=== PATIENT | male | born 1995 | race Caucasian/White ===

== ENCOUNTER 2023-04-20 21:04 | Emergency (ER) | payer OTHER, SELFPAY ==
--- NOTE | ~2023-04-20 | XR_ITS ---
EXAMINATION: XR KNEE, LEFT CLINICAL INFORMATION: Knee pain COMPARISON: None available. TECHNIQUE: Four views of the left knee. FINDINGS: No fracture or joint effusion. Alignment is anatomic. Joint spaces are maintained. No abnormal soft tissue calcification. XR/XR knee LT 4V IMPRESSION: Normal left knee.
[2023-04-20 21:29] VITALS: BP 124/89; PULSE 98; RESP 18; TEMP 36.7; O2SAT 97; BMI 36.0
--- NOTE | 2023-04-20 23:58 | ED.LOWEXIN ---
HPI - Extremity Injury (Lower) General Chief Complaint: Extremity Injury, Lower Stated Complaint: Left Knee Injury Time Seen by Provider: 04/20/23 23:45 Source: patient Mode of arrival: wheelchair History of Present Illness HPI Narrative: 27-year-old male who presents with left knee pain after participating in his martial arts course and landed on his left foot with knee shifting to the medial aspect and now has pain over the LCL area and having difficulty bearing weight. Related Data Allergies Allergy/AdvReac Type Severity Reaction Status Date / Time Sulfa (Sulfonamide Allergy Unknown THINS BLOOD Unverified 01/04/20 16:57 Antibiotics) [SULFA(SULFONAMIDE ANTIBIOTICS)] morphine Allergy Unknown Uncoded 08/05/16 00:00 Review of Systems Review of Systems: Pertinent positives and negatives as stated in [facility] Past Medical History Source: nursing notes reviewed Onset Date is defined in the Problem List Problems that require an onset date and time if occurred within 24 hrs of arrival to the ED Aortic Dissection and Rupture; Neurologic impairment; Cardiopulmonary Arrest; Endotracheal Intubation; Insertion or Replacement of Mechanical Circulatory Assist Device Physical Exam Vital Signs: Vital Signs: Last Vital Signs Temp 98.1 F 04/20/23 21:29 Pulse 98 04/20/23 21:29 Resp 18 04/20/23 21:29 BP 124/89 04/20/23 21:29 Pulse Ox 97 04/20/23 21:29 O2 Del Method Room Air 04/20/23 21:29 BMI result Body Mass Index 36.0 VITAL SIGNS: Reviewed. GENERAL: Well developed, well nourished, in no acute distress. HEAD: Normocephalic/atraumatic EYES: PERRLA, EOMI EARS: Ext canals without abnormality LUNGS: Normal breath sounds. No adventitious sounds or accessory muscle use. SpO2<97> CARDIOVASCULAR: Regular rate and rhythm without noted murmurs ABDOMEN: Soft, non-tender, non-distended with bowel sounds. MUSCULOSKELETAL: No tenderness, deformities, or effusions noted on gross inspection. EXTREMITIES: No cyanosis, clubbing or edema. LEFT KNEE: No obvious deformity, no erythema or induration, no effusion, tenderness to palpation over the LCL distribution, no patellar pain and no MCL pain, neurovascular is intact distal SKIN: Inspection of the skin reveals no rashes NEUROLOGIC: Alert and oriented x 4. Strength and sensation to light touch were grossly intact x 4. Medical Decision Making Medical Decision Making MDM Narrative: 27-year-old male with history and clinical presentation, DDX: I highly suspecting LCL/lateral meniscus injury, minimal swelling or effusion, I reviewed the x-ray which is not surprisingly negative for fracture or dislocation. Her wraps the knee with an Ney wrap and gave patient crutches and directed him to his primary care doctor and discussion for referral Sports Medicine. Differential Diagnosis Differential Diagnoses: The differential diagnosis associated with the presentation includes Please see the discussion above Admission/Observation Consideration of admission/observation: Escalation of care including admission/observation considered Please see the discussion above Radiology Impression Discussion of test interpretation with radiology: I have reviewed the radiologist's reading. Radiologist Impression: Please see the discussion above Discharge Plan Discharge Clinical Impression: Injury of knee, left Patient Disposition: Home, Self-Care Instructions: Crutch Instructions (ED), How to Use an Elastic Bandage (ED), Knee Pain (ED), R.I.C.E. Treatment (ED) Additional Instructions: 1. Keep the Ney wrap in place as the compression will help with your pain. Use the crutches and weight bear as tolerated. 2. Please apply ice to unexposed skin for 10-15 minutes, 3 to 4 times a day. 3. Please follow-up with your primary care doctor and discuss a referral to Sports Medicine. Return to the ER for any worsening symptoms. Stand Alone Forms: Work/School Release
--- NOTE | 2023-04-21 00:47 | PC.NURSE ---
The RN only reviewed discharge instructions with pt. pt verbalized understanding upon discharge, no sign of distress at this time.
== END 2023-04-21 00:49 | disposition home or self-care (01) ==
PROVIDERS: Emergency Provider Student in an Organized Health Care Education/Training Program
DX: S89.92XA Unspecified injury of left lower leg, initial encounter (principal); Y93.75 Activity, martial arts; Y92.89 Other specified places as the place of occurrence of the external cause; Y99.9 Unspecified external cause status; M25.562 Pain in left knee
CPT/HCPCS: 73564; 99282; 99283

== ENCOUNTER 2023-04-29 12:58 | Outpatient (REF) | payer OTHER, SELFPAY ==
--- NOTE | ~2023-04-29 | MR_ITS ---
EXAMINATION: MR KNEE WITHOUT CONTRAST, LEFT CLINICAL INFORMATION: Left knee pain. Instability. Effusion. COMPARISON: Left knee radiographs dated 04/20/2023. TECHNIQUE: MRI of the knee without contrast was performed using routine sequences on a high-field scanner. FINDINGS: MENISCI: Medial Meniscus: Complete radial tear of the posterior root insertion measuring up to 0.6 cm in ML dimension with adjacent soft tissue edema. Medial extrusion of the meniscal body. Lateral Meniscus: Partially discoid lateral meniscus. Oblique longitudinal tearing through the anterior horn. LIGAMENTS: Cruciate: Complete, full-thickness tear of the anterior cruciate ligament with diffuse thickening, heterogeneity, and edema of the torn ligament fibers. Intact posterior cruciate ligament. Collateral: Edema adjacent to the medial collateral ligament consistent with a grade 1 sprain. Edema adjacent to the fibular collateral ligament consistent with a grade 1 sprain. Attenuation and edema in the region of the arcuate ligament, consistent with a sprain/partial tear and a posterolateral corner injury. Prominent adjacent soft tissue edema. EXTENSOR MECHANISM: Intact. ARTICULAR CARTILAGE/BONE: Patellofemoral Compartment: Intact articular cartilage. Medial Compartment: Intact articular cartilage. Minimal cortical depression with underlying marrow edema at the posterior aspect of the medial tibial plateau, consistent with an impaction fracture. Lateral Compartment: Intact articular cartilage. Minimal cortical depression with underlying marrow edema at the sulcus terminalis and posterior lateral tibial plateau, consistent with impaction fractures. JOINT FLUID AND BURSAE: Moderate joint effusion. Anterolateral subcutaneous edema, consistent with a soft tissue contusion. MR/MR knee LT wo con IMPRESSION: 1. Complete, full-thickness tear of the anterior cruciate ligament. 2. Grade 1 sprain of the medial collateral ligament. Grade 1 sprain of the fibular collateral ligament. Additional sprain/partial tear of the arcuate ligament, consistent with a posterolateral corner injury. 3. Complete radial tear of the medial meniscus posterior root with medial extrusion of the meniscal body. 4. Partially discoid lateral meniscus with an oblique longitudinal tear through the anterior horn. 5. Minimally depressed impaction fractures at the sulcus terminalis as well as at the posterior medial and lateral tibial plateau. 6. Moderate joint effusion. Anterolateral subcutaneous edema, consistent with a soft tissue contusion.
== END 2023-04-29 12:59 | disposition home or self-care (01) ==
LOC: HO.MRI 12:58
PROVIDERS: PCP Internal Medicine; Referring Provider Internal Medicine; Visit Provider Student in an Organized Health Care Education/Training Program
DX: M25.362 Other instability, left knee (principal); M25.462 Effusion, left knee
CPT/HCPCS: 73721

== ENCOUNTER 2023-05-18 15:44 | Emergency (ER) | payer OTHER, SELFPAY ==
[2023-05-18 15:49] VITALS: BP 113/65; PULSE 99; RESP 18; TEMP 36.3; O2SAT 97; BMI 36.0
--- NOTE | 2023-05-18 15:56 | ED.GENADULT ---
HPI - General Adult General Chief complaint: Extremity Injury, Lower Stated complaint: left acl injury swelling Time Seen by Provider: 05/18/23 18:09 Source: patient Mode of arrival: other (Crutches ambulatory) Limitations: no limitations History of Present Illness HPI narrative: Patient is a 27-year-old male with reported past medical history of G6PD deficiency who presents emergency department for evaluation. He reports he sustained a tear to his ACL. About 1 week following on 04/27/2022 he developed pain to his left calf and swelling which he attributed to the initial injury, and intermittent numbness to the left foot He had his initial appointment today with [facility] orthopedic surgeon, Dr. Byrd, who sent him to [facility] for outpatient ultrasound which revealed a DVT and he was advised to present to the emergency department. He denies any personal history of DVT/PE. He denies headache, dizziness, lightheadedness, neck pain, chest pain, shortness of breath. Related Data Previous Rx's Medication Instructions Recorded apixaban 5 mg (74 tabs) tablets in 5 mg PO BID #74 ea 05/18/23 a dose pack (Eliquis DVT-PE Treat 30D Start) Allergies Allergy/AdvReac Type Severity Reaction Status Date / Time Sulfa (Sulfonamide Allergy Unknown THINS BLOOD Verified 05/18/23 15:49 Antibiotics) [SULFA(SULFONAMIDE ANTIBIOTICS)] morphine Allergy Unknown Hives Uncoded 05/18/23 15:49 Review of Systems Review of Systems: Yes all other systems are reviewed and are negative PMFSH Past Medical History Attestation statement: The following information was validated with the patient. Source: old records reviewed Social History Social History Advance Directives: No Advance Directives Information Provided: No Physical Exam ED Vital Signs: Vital Signs - 24 hr 05/18/23 15:49 05/18/23 18:01 Temperature 97.3 F 98.8 F Pulse Rate 99 86 Respiratory Rate 18 20 Blood Pressure 113/65 124/65 Pulse Oximetry 97 97 Oxygen Delivery Method Room Air Room Air BMI result Body Mass Index 36.0 Appearance: Alert.?Oriented to person, place and time. No acute distress.?Normal affect. Eyes: Pupils equal, round and reactive to light.? ENT: Pharynx normal.?? Neck: Normal inspection.? Neck supple.?? CVS: Heart sounds normal. Normal heart rate and rhythm.? Pulses normal.?? Respiratory: No respiratory distress.? Lung sounds clear to auscultation bilaterally?? Abdomen: Soft and non-tender. Normoactive bowel sounds. No pulsatile mass.?? Skin: Skin warm and dry.? Normal skin color.? Normal skin turgor.?? Extremities: Left calf tenderness upon palpation. 2+ left lower extremity pitting edema, 1+ DP/PT pulse on the left, 2+ on the right. Knee immobilizer in place. Neuro: Moves all extremities spontaneously. Sensation intact bilaterally. CN II-XII intact. No focal neuro deficits. Ambulates with n antalgic gait and use of crutches Course Course Course Narrative: RME- 27-year-old male presents for evaluation of ?I have a blood clot in my leg. ? Patient reports that he tore his ACL on April 20 this year. He had an outpatient ultrasound due to right leg pain and swelling was found to have a DVT per his report. His ultrasound was done at [facility] outpatient. He has a disc with him. Plan for labs including coags Medical Decision Making Medical Decision Making [facility] Narrative: Patient is a 27-year-old male with past medical history of anxiety, depression, hypothyroidism, migraine headaches, G6 PD deficiency presenting to emergency department for reports of outpatient ultrasound indicating DVT in the setting of recent ACL tear as per HPI. Extremity at this time is neurovascularly intact distally. I reviewed the radiologist impression from his outpatient ultrasound which indicates Occlusive thrombus of one of the paired peroneal veins in the calf measuring at least 5cm in length . He does not have any symptoms concerning for pulmonary embolism. Vital signs are stable. Consulted with vascular Dr. Mckeon who reports no indication for surgical intervention at this time and that he may be initiated on Eliquis with outpatient follow-up. Serum labs were obtained prior to initiation no anemia, coags normal, unremarkable BMP, no need to renally adjust. We discussed strict return precautions, bleeding precautions, worrisome signs and symptoms that would warrant re-evaluation. All questions were answered. Stable for discharge Differential Diagnosis Differential Diagnoses: The differential diagnosis associated with the presentation includes (As noted above) Admission/Observation Consideration of admission/observation: Escalation of care including admission/observation considered (See narrative above) Lab Data [facility] Lab Attestation statement: I reviewed the patient's lab results. (See narrative above) 05/18/23 18:44 05/18/23 18:44 Labs: Lab Results 05/18/23 Range/Units 18:44 WBC 11.0 H (4.8-10.8) X10*3/uL RBC 5.53 (4.60-5.80) X10*6/uL Hgb 15.9 (14.0-18.0) g/dl Hct 46.8 (42.0-52.0) % MCV 84.6 (80.0-98.0) fL MCH 28.8 (27.0-33.0) pg MCHC 34.0 (31.0-36.0) g/dl RDW 13.0 (11.0-16.0) % Plt Count 342 (160-400) X10*3/uL MPV 8.2 L (9.4-12.4) fL Immature Gran % (Auto) 0.4 (0.0-0.4) % Neut % (Auto) 54.3 (45-73) % Lymph % (Auto) 26.9 (20-40) % [place] % (Auto) 10.6 (2-11) % Eos % (Auto) 6.9 H (0-4) % Baso % (Auto) 0.9 (0-2) % Lymph # (Auto) 3.0 (1.2-4.9) X10*3/uL [place] # (Auto) 1.2 (0.1-1.2) X10*3/uL Eos # (Auto) 0.8 H (0.0-0.4) X10*3/uL Baso # (Auto) 0.1 (0.0-0.2) X10*3/uL Abs Immat Gran (auto) 0.04 H (0.00-0.03) X10*3/uL Absolute Neuts (auto) 6.0 (2.0-8.3) x10*3/uL Absolute Nucleated RBC 0.000 (0.0-0.012) X10*3/uL Nucleated RBC % (auto) 0.0 (0.0-0.2) /100WBC PT 12.2 (11.1-13.3) SEC INR 1.0 (0.9-1.1) APTT 30.9 (26.0-36.8) SEC Sodium 140 (135-145) mmol/L Potassium 4.3 (3.3-5.1) mmol/L Chloride 103 (96-108) mmol/L Carbon Dioxide 26 (22-29) mmol/L Anion Gap 15 (12-20) BUN 13 (9-16) mg/dL Creatinine 1.02 (0.5-1.4) mg/dL Estim Creat Clear Calc 124.1 Estimated GFR > 60 Random Glucose 87 (60-115) mg/dL Calcium 9.9 (8.4-10.2) mg/dL Independent Historian Clinical information obtained from an independent historian. History obtained from or confirmed by: Spouse (Present who confirms history) External Record Review External record reviewed: Prior outpatient radiology Prescription Management I considered prescription management with: Other (Eliquis) Discharge Plan Discharge Clinical Impression: Acute deep vein thrombosis (DVT) of distal end of left lower extremity Patient Disposition: Home, Self-Care Instructions: Deep Vein Thrombosis (ED), Blood Thinners (ED) Additional Instructions: You have been started on a blood thinning medication due to the blood clot that is in your left calf. The name of this medication is Eliquis/apixaban. You will take 10 mg twice daily for 7 days. Then you will take 5 mg twice daily for at least 3 months. It is important that you monitor for any signs of bleeding, a few sustained any falls or injury, or injury your head in any way you should present to an emergency department to have evaluation. If you develop chest pain, shortness of breath, difficulty breathing, severe headache, dizziness, lightheadedness, confusion, you should return to the emergency department for re-evaluation. Please contact your primary care provider as well as your orthopedic provider to arrange for further follow-up. Prescriptions: New Eliquis DVT-PE Treat 30D Start 5 mg (74 tabs) tablets,dose pack 5 mg PO BID Qty: 74 0RF Referrals: Kennedy Hand MD [Primary Care Provider] -
[2023-05-18 18:01] VITALS: BP 124/65; PULSE 86; RESP 20; TEMP 37.1; O2SAT 97
[2023-05-18 18:49] LABS: MANUAL DIFF FLAG NO
[2023-05-18 18:51] LABS: Basophils Absolute Auto 0.1 X10*3/uL (0.0-0.2); Basophils Percent Auto 0.9 % (0-2); Eosinophils Absolute Auto 0.8 X10*3/uL (0.0-0.4); Eosinophils Percent Auto 6.9 % (0-4); Hematocrit 46.8 % (42.0-52.0); Hemoglobin 15.9 g/dl (14.0-18.0); Imm Gran Abs Auto 0.04 X10*3/uL (0.00-0.03); Imm Gran Pct Auto 0.4 % (0.0-0.4); Lymphocytes Percent Auto 26.9 % (20-40); Mean Corpuscular Hemoglobin 28.8 pg (27.0-33.0); Mean Corpuscular Volume 84.6 fL (80.0-98.0); Mean Platelet Volume 8.2 fL (9.4-12.4); Monocytes Absolute Auto 1.2 X10*3/uL (0.1-1.2); Monocytes Percent Auto 10.6 % (2-11); Neutrophils Percent Auto 54.3 % (45-73); Platelet Count 342 X10*3/uL (160-400); Red Blood Count 5.53 X10*6/uL (4.60-5.80)
[2023-05-18 18:58] LABS: Prothrombin Time 12.2 SEC (11.1-13.3)
[2023-05-18 19:01] LABS: Anion Gap 15 (12-20); Blood Urea Nitrogen 13 mg/dL (9-16); Calcium 9.9 mg/dL (8.4-10.2); Carbon Dioxide 26 mmol/L (22-29); Chloride 103 mmol/L (96-108); Creatinine Clr Calc Pharmacy 124.1; Estimated Glomerular Filt Rate > 60; Glucose Random 87 mg/dL (60-115); Partial Thromboplastin Time 30.9 SEC (26.0-36.8); Potassium 4.3 mmol/L (3.3-5.1); Sodium 140 mmol/L (135-145)
[2023-05-18 19:42] VITALS: BP 117/69; PULSE 70; RESP 16; TEMP 36.1; O2SAT 98
[2023-05-18] MEDS: Apixaban 5 MG TABLET 10 MG PO (19:50)
== END 2023-05-18 19:54 | disposition home or self-care (01) ==
PROVIDERS: Physician Assistant; Emergency Provider Emergency Medicine; PCP Internal Medicine
DX: I82.4Z2 Acute embolism and thrombosis of unspecified deep veins of left distal lower extremity (principal); Z79.899 Other long term (current) drug therapy
CPT/HCPCS: 36415; 80048; 85025; 85610; 85730; 99283; 99284

== ENCOUNTER 2023-06-03 17:02 | Emergency (ER) | payer OTHER, SELFPAY ==
--- NOTE | ~2023-06-03 | CT_ITS ---
EXAMINATION: CT head/brain wo IV con CLINICAL INFORMATION: Reason for Exam fall with head strike, on thinners COMPARISON: None. TECHNIQUE: Contiguous axial imaging was performed from the skull base to vertex without intravenous contrast. Sagittal and coronal reformatted images were obtained. This CT examination was performed using dose optimization techniques as appropriate, variously including the following: * Automated exposure control * Adjustment of mA and/or kV according to patient size (this includes techniques or standardized protocols for targeted exams where dose is matched to indication/reason for exam; i.e. extremities or head) Use of iterative reconstruction technique DLP: 726.97 mGy-cm FINDINGS: No acute osseous or soft tissue abnormality. The mastoid air cells and visualized portions of the paranasal sinuses are well aerated. There is no evidence of acute intracranial hemorrhage or territorial infarction. No abnormal mass effect or midline shift is seen. Rapp to white matter differentiation is well preserved. No extra-axial fluid collections are identified. No hydrocephalus. No significant volume loss. There is no abnormal attenuation within the brain parenchyma. CT/CT head/brain wo IV con IMPRESSION: No acute intracranial abnormality including hemorrhage, mass effect, hydrocephalus, or acute territorial edematous infarction.
[2023-06-03 17:12] VITALS: BP 119/63; PULSE 117; RESP 18; TEMP 36.1; O2SAT 96; BMI 37.6
--- NOTE | 2023-06-03 17:12 | ED.GENADULT ---
HPI - General Adult General Chief complaint: Head Injury Stated complaint: + blood thinners, hit head this am. headache/ dizz Time Seen by Provider: 06/03/23 20:35 Source: patient Mode of arrival: ambulatory Limitations: no limitations History of Present Illness HPI narrative: Patient comes to the emergency room requesting to get checked out since he fell this morning and his on blood thinners. Patient states that he has a mild bump in his head, mild headache. No neck pain. Patient states that overall he feels well and at baseline. Patient states that he is sleep this morning and hit the top of his head on the door knob. Patient did not lose consciousness. Earlier today, patient reported that he had some dizziness. However, patient denies any dizziness. Patient states that he is on Eliquis because he had a provoked DVT in his leg secondary to ACL tear Related Data Previous Rx's Medication Instructions Recorded apixaban 5 mg (74 tabs) tablets in 5 mg PO BID #74 ea 05/18/23 a dose pack (Eliquis DVT-PE Treat 30D Start) Allergies Allergy/AdvReac Type Severity Reaction Status Date / Time Sulfa (Sulfonamide Allergy Unknown THINS BLOOD Verified 06/03/23 17:11 Antibiotics) [SULFA(SULFONAMIDE ANTIBIOTICS)] morphine Allergy Unknown Hives Uncoded 05/18/23 15:49 Review of Systems Review of Systems: Constitutional : No Weight loss, No Fever, No Chills, No Night Sweats, No Fatigue, No Malaise ENT/Mouth : No Hearing loss, No Ear Pain, No Nasal Congestion, No Sinus Pain, No Hoarseness, No sore throat, No Rhinorrhea, No Swallowing Difficulty Eyes: No Eye Pain, No Swelling, No Redness, No Foreign Body, No Discharge, No Vision Changes Cardiovascular : No Chest Pain, No SOB, No Dyspnea on Exertion, No Orthopnea, No Edema, No Palpitations Respiratory : No Cough, No Sputum, No Wheezing, No Smoke Exposure, No Dyspnea Gastrointestinal : No Nausea, No Vomiting, No Diarrhea, No Constipation, No abdominal Pain, No Hematochezia, No Melena Genitourinary : no irregular bleeding, No Dysuria, No Urinary Frequency, No Hematuria, No Urinary Incontinence, No Urgency, No Flank Pain, No Urinary Flow Changes, No Hesitancy Musculoskeletal : No joint pain, No Myalgias, No Joint Swelling Skin : No Skin Lesions, No rash Neuro : No Weakness, No Numbness, No Paresthesias, No Loss of Consciousness, No Dizziness, complaining of mild Headache Psych : No Anxiety/Panic, No Depression, No SI/HI/AH/VH, No Social Issues, Heme/Lymph: No Bruising, No Bleeding,No Lymphadenopathy Endocrine : No Polyuria, No Polydipsia, No Temperature Intolerance [facility] Past Medical History Medical History (Updated 06/03/23 @ 21:22 by Gisel Ayers MD) DVT (deep venous thrombosis) Social History Social History Advance Directives: No Advance Directives Information Provided: No Physical Exam ED Vital Signs: Vital Signs - 24 hr 06/03/23 17:12 Temperature 97 F Pulse Rate 117 H Respiratory Rate 18 Blood Pressure 119/63 Pulse Oximetry 96 Oxygen Delivery Method Room Air BMI result Body Mass Index 37.6 Const Other: Appearance: Alert. Oriented X3. No acute distress. Eyes: Pupils equal, round and reactive to light. ENT: Pharynx normal. Neck: Normal inspection. Neck supple. No lymph nodes noted. No crepitus CVS: Normal heart rate and rhythm. Pulses normal. Normal S1 and S2 Respiratory: No respiratory distress. Breath sounds normal. No Wheezing. No rales Abdomen: Soft and nontender. No rigidity. No distention. Skin: Skin warm and dry. Normal skin color. Normal skin turgor. Extremities: No lower extremity edema. No Lacerations. No Rash Neuro: Oriented X 3. No motor deficit. No sensory deficit. Moving all extremities. No slurred speech. CN 2 through 12 grossly intact Psych: calm, cooperative, normal affect Course Course Course Narrative: This is a rapid medical exam: Additional HPI, ROS, PE not included below will be deferred to primary provider. Patient is a 27-year-old male currently on Eliquis for DVT presenting to the emergency department with complaint of headache and dizziness after a slip and fall earlier today. States that he slipped while entering his apartment due to using crutches and has a top of his head against his door walker. Later in the day developed headache and dizziness. Plan: CT head Medical Decision Making Medical Decision Making [facility] Narrative: My interpretation of CT scan of the head: No intracranial bleed. -patient is neurologically intact and asymptomatic Differential Diagnosis Differential Diagnoses: The differential diagnosis associated with the presentation includes (Contusion, concussion, intracranial bleed) Discharge Plan Discharge Clinical Impression: Closed head injury Patient Disposition: Home, Self-Care Instructions: Head Injury (ED) Additional Instructions: Please follow-up with your primary care physician tomorrow. If you have any worsening or new symptoms, please return to the emergency room or call 911 Prescriptions: No Action Gissel DVT-PE Treat 30D Start 5 mg (74 tabs) tablets,dose pack 5 mg PO BID Qty: 74 0RF
== END 2023-06-03 21:25 | disposition home or self-care (01) ==
PROVIDERS: Emergency Provider Emergency Medicine; PCP Internal Medicine
DX: S09.90XA Unspecified injury of head, initial encounter (principal); W22.8XXA Striking against or struck by other objects, initial encounter; Y93.84 Activity, sleeping; Y92.032 Bedroom in apartment as the place of occurrence of the external cause; Y99.9 Unspecified external cause status; Z86.718 Personal history of other venous thrombosis and embolism; Z79.01 Long term (current) use of anticoagulants
CPT/HCPCS: 70450; 99283; 99284

== ENCOUNTER 2024-09-05 09:19 | Emergency (ER) | payer OTHER, SELFPAY ==
--- NOTE | ~2024-09-05 | CT_ITS ---
EXAMINATION: CT ABDOMEN PELVIS WITH IV CONTRAST HISTORY: left side abd pain COMPARISON: There are no prior studies for comparison. TECHNIQUE: CT scan of the abdomen and pelvis was performed following administration of 85 mL Omnipaque 350 using standard departmental protocol. Coronal and sagittal reformatted images were generated and reviewed. Oral contrast material was not administered at the request of the referring physician. This CT exam was performed with one or more of the following dose reduction techniques: automated exposure control, adjustment of the mA and/or kV according to patient size, use of iterative reconstruction technique. DLP: 808 mGy-cm FINDINGS: LOWER CHEST: The visualized lung bases are clear. There is no pleural effusion. CARDIOVASCULATURE: The heart is normal in size. There is no pericardial effusion. LIVER: The liver is normal in size and contour. No liver mass is identified. The hepatic and portal veins are patent. GALLBLADDER / BILE DUCTS: The gallbladder is surgically absent. There is no intra or extrahepatic biliary ductal dilatation. SPLEEN: The spleen is normal in size. No focal splenic lesion is identified. PANCREAS: The pancreas is unremarkable in appearance. ADRENAL GLANDS: Within normal limits. KIDNEYS/RETROPERITONEUM: No renal calculi are identified. There is no hydronephrosis. There is a subcentimeter probable cyst at the upper pole of the right kidney. LYMPH NODES: No abdominal or pelvic lymphadenopathy. VASCULATURE: The abdominal aorta is normal in caliber. MESENTERY/PERITONEUM: No free fluid. No masses. There is no free intraperitoneal gas. STOMACH: The stomach is unremarkable. SMALL BOWEL: The small bowel is normal in caliber. COLON: There is a moderate to large amount of stool throughout the colon. APPENDIX: Normal. URINARY BLADDER/PELVIC ORGANS: The urinary bladder is collapsed, limiting evaluation. The prostate is normal in size. BONES / SOFT TISSUES: There is a tiny fat-containing umbilical hernia. The bones are intact. CT/CT abdomen pelvis w IV con IMPRESSION: Moderate to large amount of stool throughout the colon. Electronically signed by: Malachi Lundy MD 09/05/2024 10:52 AM EDT
[2024-09-05 09:34] VITALS: BP 123/81; PULSE 79; RESP 16; TEMP 36.2; O2SAT 96; BMI 37.8
[2024-09-05 09:55] LABS: MANUAL DIFF FLAG NO
[2024-09-05 09:57] LABS: Basophils Absolute Auto 0.1 X10*3/uL (0.0-0.2); Basophils Percent Auto 0.5 % (0-2); Eosinophils Absolute Auto 1.4 X10*3/uL (0.0-0.4); Eosinophils Percent Auto 14.7 % (0-4); Hematocrit 44.7 % (42.0-52.0); Hemoglobin 15.5 g/dl (14.0-18.0); Imm Gran Abs Auto 0.04 X10*3/uL (0.00-0.03); Imm Gran Pct Auto 0.4 % (0.0-0.4); Lymphocytes Percent Auto 20.8 % (20-40); Mean Corpuscular HGB Conc 34.7 g/dl (31.0-36.0); Mean Corpuscular Hemoglobin 29.1 pg (27.0-33.0); Mean Corpuscular Volume 83.9 fL (80.0-98.0); Mean Platelet Volume 8.5 fL (9.4-12.4); Monocytes Percent Auto 10.1 % (2-11); Neutrophils Absolute Auto 5.1 x10*3/uL (2.0-8.3); Neutrophils Percent Auto 53.5 % (45-73); Platelet Count 302 X10*3/uL (160-400); Red Blood Count 5.33 X10*6/uL (4.60-5.80); Red Cell Distribution Width 13.4 % (11.0-16.0); White Blood Count 9.5 X10*3/uL (4.8-10.8)
[2024-09-05 10:14] LABS: Alanine Aminotransferase 100 U/L (0-40); Albumin Level 4.4 g/dL (3.5-5.0); Alkaline Phosphatase 98 U/L (39-117); Anion Gap 11 (12-20); Aspartate Amino Transferase 37 U/L (5-37); Bilirubin Total 0.6 mg/dL (0.0-1.0); Blood Urea Nitrogen 14 mg/dL (9-16); Calcium 9.3 mg/dL (8.4-10.2); Carbon Dioxide 28 mmol/L (22-29); Chloride 104 mmol/L (96-108); Creatinine Clr Calc Pharmacy 119.1; Estimated Glomerular Filt Rate > 60; Glucose Random 105 mg/dL (60-115); Lipase 20 U/L (8-78); Sodium 139 mmol/L (135-145); Total Protein 7.7 g/dL (6.5-8.0)
--- NOTE | 2024-09-05 10:14 | ED.ABDPAIN ---
HPI - Abdominal Pain General Chief Complaint: Abdominal Pain Stated Complaint: Hernia, nausea/vomiting Time Seen by Provider: 09/05/24 09:57 Source: patient Mode of arrival: ambulatory Limitations: no limitations History of Present Illness ED Provider: DR. Ochoa HPI narrative: 28-year-old male came in for evaluation abdominal pain, nausea, vomiting, nonbloody watery diarrhea for the past 2 days, patient had similar symptoms 2 weeks ago lasted for 2 days, past intra-abdominal surgery is significant for acute cholecystectomy, no dysuria, no frequency urination, no hematuria. Patient also is being having a rotten eggs burping. No fever, no chills, no recent travel. Related Data Previous Rx's ?Medication ?Instructions ?Recorded apixaban 5 mg (74 tabs) tablets in 5 mg PO BID #74 ea 05/18/23 a dose pack (Eliquis DVT-PE Treat 30D Start) Allergies Allergy/AdvReac Type Severity Reaction Status Date / Time Sulfa (Sulfonamide Allergy Unknown THINS BLOOD Verified 09/05/24 09:41 Antibiotics) [SULFA(SULFONAMIDE ANTIBIOTICS)] morphine Allergy Unknown Hives Uncoded 09/05/24 09:41 Review of Systems Review of Systems all other systems are reviewed and are negative Constitutional: Reports as per HPI and Reports no additional constitutional complaints Eyes: Reports as per HPI and Reports no additional eye complaints Reports system reviewed and no additional complaints, except as documented Cardiovascular: Reports as per HPI and Reports no additional cardiovascular complaints Respiratory: Reports as per HPI and Reports no additional respiratory complaints Gastrointestinal: Reports as per HPI and Reports no additional gastrointestinal complaints Genitourinary: Reports no additional female genitourinary complaints Musculoskeletal: Reports no additional musculoskeletal complaints Skin/Breast: Reports system reviewed and no additional complaints, except as docu Psychiatric: Reports no additional psychiatric complaints Endocrine: Reports no additional endocrine complaints Hematologic/Lymphatic: Reports no additional hematologic/lymphatic complaints Allergic/Immunologic: Reports no additional allergic/immunologic complaints Reports system reviewed and no additional complaints, except as documented and Reports Abnormal speech present [facility] Past Medical History Medical History DVT (deep venous thrombosis) Social History Social History Smoked in Last 30 Days: No Use of substances other than those prescribed or required for medical reasons: Yes Substance Use Type: Marijuana Substance Use Type Other:: marijuana gummies only Advance Directives: No Advance Directives Information Provided: No Physical Exam ED Vital Signs: Vital Signs - 24 hr 09/05/24 09:34 09/05/24 11:31 Temperature 97.1 F 97.4 F Pulse Rate 79 75 Respiratory Rate 16 16 Blood Pressure 123/81 98/52 L Pulse Oximetry 96 98 Oxygen Delivery Method Room Air Room Air BMI result Body Mass Index 37.8 Vital signs have been reviewed and appear to be correct. Blood pressure elevated. Heart rate normal. Respiratory rate normal. Temperature normal. Oxygen saturation normal. Appearance: Alert. Oriented X3. No acute distress. Head: Normal external exam. Normocephalic. Atraumatic. No Pulido signs noted. No raccoon eyes noted Eyes: PERRLA. EOMI. Conjunctiva and sclera normal. Eyelids normal. ENT: TM's Normal. Pharynx normal. Uvula midline. Moist mucous membranes. No trismus noted. No drooling noted. No muffled voice noted. Neck: Normal inspection. Neck supple. FROM. No adenopathy. Thyroid Normal. No meningeal signs. No neck mass noted. CVS: Normal heart rate and rhythm. Heart sound normal. No murmurs noted. Pulses normal throughout. Respiratory: No respiratory distress. Painless inspiration. Breath sounds normal. No wheezes/rales/rhonchi noted. Chest nontender. No accessory muscle usage noted or decreased air movement noted. Abdomen: Soft and nontender. Bowel sounds normal in all 4 quadrants. No distention noted. No organomegaly noted. No visible injury noted. Back: No CVA tenderness. Full range of motion noted. Skin: Skin warm and dry. Normal skin color. Normal skin turgor. No rashes/lesions/lacerations noted. Extremities: No lower extremity edema. Extremities exhibit normal range of motion. Extremities nontender. Neuro: Oriented X 3. Cranial nerve exam: II-XII are grossly intact No motor deficit. No sensory deficit. Reflexes normal. Course Reevaluation(s) Reevaluation #1: abdominal pain, CT abdomen pelvis reveals no acute intra-abdominal pathology, labs are unremarkable except for ALT elevation. Instructed to follow-up with PCP. Time: 11:55 Medical Decision Making Differential Diagnosis Differential Diagnoses: The differential diagnosis associated with the presentation includes Admission/Observation Consideration of admission/observation: Escalation of care including admission/observation considered ( Complicated hernia, colitis, diverticulitis, acute appendicitis, electrolyte derangement, severe anemia.) Consult Healthcare Provider Management of the patient was discussed with: Primary Care Provider Lab Data MDM Lab Attestation statement: I reviewed the patient's lab results. 09/05/24 09:51 09/05/24 09:51 Labs: Lab Results 09/05/24 09/05/24 09/05/24 Range/Units 09:51 10:10 10:25 WBC 9.5 (4.8-10.8) X10*3/uL RBC 5.33 (4.60-5.80) X10*6/uL Hgb 15.5 (14.0-18.0) g/dl Hct 44.7 (42.0-52.0) % MCV 83.9 (80.0-98.0) fL MCH 29.1 (27.0-33.0) pg MCHC 34.7 (31.0-36.0) g/dl RDW 13.4 (11.0-16.0) % Plt Count 302 (160-400) X10*3/uL MPV 8.5 L (9.4-12.4) fL Immature Gran % (Auto) 0.4 (0.0-0.4) % Neut % (Auto) 53.5 (45-73) % Lymph % (Auto) 20.8 (20-40) % Blair % (Auto) 10.1 (2-11) % Eos % (Auto) 14.7 H (0-4) % Baso % (Auto) 0.5 (0-2) % Lymph # (Auto) 2.0 (1.2-4.9) X10*3/uL Blair # (Auto) 1.0 (0.1-1.2) X10*3/uL Eos # (Auto) 1.4 H (0.0-0.4) X10*3/uL Baso # (Auto) 0.1 (0.0-0.2) X10*3/uL Abs Immat Gran (auto) 0.04 H (0.00-0.03) X10*3/uL Absolute Neuts (auto) 5.1 (2.0-8.3) x10*3/uL Absolute Nucleated RBC 0.000 (0.0-0.012) X10*3/uL Nucleated RBC % (auto) 0.0 (0.0-0.2) /100WBC Sodium 139 (135-145) mmol/L Potassium 4.0 (3.3-5.1) mmol/L Chloride 104 (96-108) mmol/L Carbon Dioxide 28 (22-29) mmol/L Anion Gap 11 L (12-20) BUN 14 (9-16) mg/dL Creatinine 1.08 (0.5-1.4) mg/dL Estim Creat Clear Calc 119.1 Estimated GFR > 60 Random Glucose 105 (60-115) mg/dL Lactic Acid 1.8 (0.5-2.0) mmol/L Calcium 9.3 D (8.4-10.2) mg/dL Total Bilirubin 0.6 (0.0-1.0) mg/dL AST 37 (5-37) U/L ALT 100 H (0-40) U/L Alkaline Phosphatase 98 (39-117) U/L Total Protein 7.7 (6.5-8.0) g/dL Albumin 4.4 (3.5-5.0) g/dL Lipase 20 (8-78) U/L Urine Color Yellow Urine Appearance Turbid Urine pH 7.5 (5.0-9.0) Ur Specific [facility] 1.020 (1.005-1.025) Urine Protein Negative (Neg-Trace) mg/dL Urine Glucose (UA) Negative (Negative) mg/dL Urine Ketones Negative (Negative) mg/dL Urine Blood Negative (Negative) Urine Nitrite Negative (Negative) Ur Leukocyte Esterase Negative (Negative) Independent Interpretation I performed an independent interpretation of an: CT Scan ( Abdomen and pelvis: Moderate to large amount of stool throughout the colon) Radiology Impression Discussion of test interpretation with radiology: I have reviewed the radiologist's reading. Medications Administered Discontinued Medications Generic Name Dose Route Start Last Admin Trade Name Freq PRN Reason Stop Dose Admin Sodium Chloride 1,000 mls @ 999 mls/hr 09/05/24 10:04 09/05/24 11:18 Ns IV 09/05/24 11:04 Infused .Q1H1M ONE Infusion Iohexol 100 ml 09/05/24 10:40 09/05/24 10:41 Iohexol 350 Mg/Ml 100 Ml Infus..Btl IV 09/05/24 10:41 85 ml ONCE ONE Administration Ketorolac Tromethamine 15 mg 09/05/24 10:07 09/05/24 10:16 Ketorolac Tromethamine 15 Mg/Ml Vial IVPUSH 09/05/24 10:08 Not Given ONCE ONE Ondansetron HCl 4 mg 09/05/24 10:07 09/05/24 10:17 Ondansetron Hcl 4 Mg/2 Ml Vial IVPUSH 09/05/24 10:08 4 mg ONCE ONE Administration Discharge Plan Discharge Clinical Impression: Abdominal pain Patient Disposition: Home, Self-Care Instructions: Abdominal Pain (ED) Prescriptions: No Action Eliquis DVT-PE Treat 30D Start 5 mg (74 tabs) tablets,dose pack 5 mg PO BID Qty: 74 0RF Referrals: Kennedy Hand MD [Primary Care Provider] - Print Language: American
[2024-09-05] MEDS: 0.9 % Sodium Chloride 1,000 ML 999 ML IV (10:17)
[2024-09-05] MEDS: ondansetron HCL 4 MG/2 ML VIAL IVPUSH (10:17)
--- NOTE | 2024-09-05 10:21 | PC.NURSE ---
patient a&ox3, iv inserted, labs drawn, pt medicated for nausea, ivf started per order, call sauceda within reach, plan of care ongoing
[2024-09-05 10:30] LABS: Lactic Acid 1.8 mmol/L (0.5-2.0)
[2024-09-05 10:31] LABS: Appearance Urine Turbid; Color Urine Yellow; Glucose Urine UA Negative (Negative); Leukocyte Esterase Urine Negative (Negative); Nitrite Urine Negative (Negative); PH 7.5 (5.0-9.0); Urine Blood Negative (Negative); Urine Ketones Negative (Negative); Urine Protein Negative (Neg-Trace)
[2024-09-05] MEDS: iohexoL 350 MG/ML 100 ML INFUS..BTL IV (10:41)
--- OUTSIDE RECORDS SUMMARY | 2024-09-05 11:07 | XMS_ITS ---
Author Organization [facility]. Address [address] [place] [phone] Care Team Providers Care Bracelet Form Coverer Name Role Phone other PCP, not listed Primary Care Provider Unav ailable Mariam Carreon Unavailable [phone] Allergies Allergen (clinical drug ingredient) Drug/Non Drug Allergy documented on EMR Reaction Allergy Type Onset Date Status sulfa (uncoded) G6PD Allergy Acti ve morphine morphine hives Drug Allergy Active REASON FOR VISIT SX x9 days: sore throat, cough-yellow, no fever, sinus congestion, runny nose, ear pain/pressure, chest congestion, COVID tested 03/28, 04/12 both NEG, exposed to friends who are positive for STREP Medications Medication SIG (Take, Route, Frequency, Duration) Notes Start Date End Date Status AZITHROMYCIN 250 mg 2 tablets on the day, then 1 tablet daily for 4 days po qd for 5 days 04/18/2024 Active WELLBUTRIN XL 150 mg/24 hours 3 tab(s) orally every 24 hours Active LEVOTHYROXINE 150 mcg (0.15 mg) 1 tab(s) orally once a day A ctive VERAPAMIL 80 mg as directed intraven ously once Active Social History Tobacco Use: Social History Observation Description Date Details (start date - stop date) Former Smoker NA - NA Tobacco use (structured) Question Answer Notes Tobacco Use: Former tobacco user quit 10 yrs ago smokes marijuana and eats edibles Vital Signs Temperature 97.7 degrees Fahrenheit 04/18/20 24 Blood pressure systolic 100 mm Hg 04/18/20 24 Blood pressure diastolic 66 mm Hg 024 Weight 220 lbs 04/18/2024 Height 67 in 04/18/2024 BMI 34.45 kg/m2 04/18/2024 Oximetry 97 % 04/18/2024 Encounters Encounter Location Date Provider Diagnosis [facility]. [address] [place] [phone] 04/18/2024 Mariam Carreon Pharyngitis J02.9 and Strep pharyngitis J02.0 Assessments Encounter Date Diagnosis (ICD Code) Assessment Notes Treatment Notes Treatment Clinical Notes Section Notes 04/18/2024 Pharyngitis (ICD-10 - J02.9) 04/18/2024 Strep pharyngitis (ICD-10 - J02.0) Meets clinical criteria. Recommended saline oral rinses. Tylenol or ibuprofen for throat discomfort, cepacol lozenges. Plan Of Treatment Medication Medication Name Sig Start Date Stop Date Notes AZITHROMYCIN 250 mg [address] day, then 1 tablet daily for 4 days po qd for 5 days 04/18/2024 Next Appt Details Follow Up: prn worse or cont inued or new signs or symptoms, Reason: Progress Notes * Dalton PILLAI SDOB:1995 (28 yo M)Acc No.[id number]:04/18/2024 Progress Notes Patient:?Dalton PILLAI S Provider:?Mariam Carreon MD :1995???Age:28 Y???Sex:Male Raj e:04/18/2024 Phone: Address:[address] [place] [phone] Pcp:not listed other PCP Subjective: * Chief Complaints: * ???SX x9 days: sore throat, cough-yellow, no fever, sinus congestion, runny nose, ear pain/pressure, chest congestion, COVID tested 03/28, 04/12 both NEGexposed to friends who are positive for STREP * HPI: ???ENT/Pulmonary:?28 year old male presents with c/o Throat:?has sore throat, for >one week,??hurts to swallow, waxing and waning, close contacts positive for strep.?Denies : Ears:.?Denies : cough:.?Denies : shortness of breath:.?Denies : fever:.? * Medical History:? * Surgical History:? * Hospitalization/Major Diagno stic Procedure:? * Social History:?Tobacco use (structured)?Date of assessment:?04/18/2024,?Tobacco Use:?Former tobacco user quit 10 yrs agosmokes marijuana and eats edibles.? * Medications:?Takingverapamil 80 mg tablet as directed intravenously once levothyroxine 150 mcg (0.15 mg) tablet 1 tab(s) orally once a day Wellbutrin XL(buPROPion) 150 mg/24 hours tablet, extended release 3 tab(s) orally every 24 hours Medication List reviewed and reconciled with the patientTaking verapamil 80 mg tablet as directed intravenously once Taking levothyroxine 150 mcg (0.15 mg) tablet 1 tab(s) orally once a day Taking Wellbutrin XL(buPROPion) 150 mg/24 hours tablet, extended release 3 tab(s) orally every 24 hours Medication List reviewed and reconciled with the patient * Allergies:?sulfa: [id number] ne: hivesyes[Allergies Verified] Objective: * Vitals:?Temp: 97.7, BP:100/6 6, HR: 86, Wt: 220, Ht: 67, BMI:34.45, PulseOx: 97 %. * Examination: ???General Examination: ?General Appearance:?alert in no distress.?HEENT:?+posterior oropharyngeal erythema.?Neck, Thyroid:?supple, no lymphadenopathy, no mass.?Heart:?RRR, normal S1, S2, no murmur, gallop or rub.?Lungs:?clear to auscultation.?Abdomen:?normal bowel sounds, soft, no organomegaly or masses, nontender.?Extremities:?no cyanosis, clubbing or edema.? Assessment: * Assessment: 1.?Strep pharyngitis - J02.0 (Primary)???2.?Pharyngitis - J02.9??? Plan: * Treatment: * Procedure Codes:? * Follow Up:?prn worse or cont inued or new signs or symptoms * * Sign off status: Completed true * Provider:?Mariam Carreon MD Date:? Generated for Sydney finney/Mike/Percy on:?09/05/2024 11:07 AM EDT History and Physical Notes * HPI (History of Present Illness) Category Sub-Category Detail Notes Category Not es ENT/Pulmonary Throat: has sore throat, for >one week, hurts to swallow, waxing and waning, close contacts positive for strep Ears: shortness of breath: cough: fever: Examination Category Sub-Category Detail Notes Category Not es General Examination Neck, Thyroid: supple, no lymphade nopathy, no mass Heart: RRR, normal S1, S2, no murmur, gallop or rub Lungs: clear to auscultatio n Abdomen: normal bowel sounds, soft, no organomegaly or masses, nontender General Appearance: alert in no distress HEENT: +posterior oropharyn geal erythema Extremities: no cyanosis, clubbin g or edema
--- OUTSIDE RECORDS SUMMARY | 2024-09-05 11:07 | XMS_ITS ---
Author Organization [facility] [employer]. Address [address] [place] [phone] Care Team Providers Care Fireworks Display Specialist Name Role Phone other PCP, not listed Primary Care Provider Unav Mariam Dominguez Unavailable [phone] [facility]Migration, Provider Unavailable Unavailable Allergies Allergen (clinical drug ingredient) Drug/Non Drug Allergy documented on EMR Reaction Allergy Type Onset Date Status Substance with sulfonamide structure and antibacterial mechanism of action (substance) Sulfa Antibiotics G6PD Drug Allergy Active morphine Morphine hives Drug Allergy Active REASON FOR VISIT [facility] To [facility] Conversion Encounter Medications Medication SIG (Take, Route, Frequency, Duration) Notes Start Date End Date Status Levothyroxine Sodium 150 MCG 1 tab(s) orally once a day A ctive Wellbutrin XL 150 MG 3 tab(s) orally gio ry 24 hours Active Verapamil HCl 80 MG as directed intraven ously once Active Azithromycin 250 MG 2 tablets on the fir st day, then 1 tablet daily for 4 days po qd for 5 days 04/18/2024 Active Encounters Encounter Location Date Provider Diagnosis [facility]. [address] [place] [phone] 06/04/2024 Provider zMigration Strep pharyngitis J02.0 Assessments Encounter Date Diagnosis (ICD Code) Assessment Notes Treatment Notes Treatment Clinical Notes Section Notes 06/04/2024 Strep pharyngitis (ICD-10 - J02.0) Plan Of Treatment Medication Medication Name Sig Start Date Stop Date Notes Azithromycin 250 MG 2 tablets on the fir st day, then 1 tablet daily for 4 days po qd for 5 days 04/18/2024 Progress Notes * Dalton PILLAI SDOB:1995 (28 yo M)Acc No.[id number]:06/04/2024 Patient:?Dalton PILLAI Provider:? :1995???Age:28 Y???Sex:Male Raj e:06/04/2024 Phone: Address:[address] [place] [address], [place], [phone] Pcp:not listed other PCP Subjective: * Chief Complaints: * ???1. [facility] To Med[facility] Con version Encounter. * Medical History:? * Medications:?Taking Verapami l HCl 80 MG Tablet as directed intravenously once , Taking Levothyroxine Sodium 150 MCG Tablet 1 tab(s) orally once a day , Taking Wellbutrin XL(buPROPion HCl ER (XL)) 150 MG Tablet Extended Release 24 Hour 3 tab(s) orally every 24 hours * Allergies:?Sulfa Antibiotics : G6PD, Morphine: hives. Objective: * Vitals:? Assessment: * Assessment: 1.?Strep pharyngitis - J02.0 (Primary)??? Plan: * Treatment: * * Sign off status: Completed true * Provider:? Date:?06/04/2024 Generated for Sydney finney/Mike/Percy on:?09/05/2024 11:07 AM EDT
--- OUTSIDE RECORDS SUMMARY | 2024-09-05 11:07 | XMS_ITS | Patient Health Record ---
Author Organization [facility]. Address [address] [place] [phone] Care Team Providers Care Cooker Casing Name Role Phone other PCP, not listed Primary Care Provider Unav ailable Mariam Carreon Unavailable [phone] [employer], Provider Unavailable Unavailable Allergies Allergen (clinical drug ingredient) Drug/Non Drug Allergy documented on EMR Reaction Allergy Type Onset Date Status Substance with sulfonamide structure and antibacterial mechanism of action (substance) Sulfa Antibiotics G6PD Drug Allergy Active morphine Morphine hives Drug Allergy Active Reason For Referral No Information Medications Medication SIG (Take, Route, Frequency, Duration) Notes Start Date End Date Status Levothyroxine Sodium 150 MCG 1 tab(s) orally once a day A ctive Wellbutrin XL 150 MG 3 tab(s) orally gio ry 24 hours Active Verapamil HCl 80 MG as directed intraven ously once Active Azithromycin 250 MG 2 tablets on the day, then 1 tablet daily for 4 days po qd for 5 days 04/18/2024 Active Social History Tobacco Use: Social History Observation Description Date Details (start date - stop date) Former Smoker NA - NA Tobacco use (structured) Question Answer Notes Tobacco Use: Former tobacco user quit 10 yrs ago smokes marijuana and eats edibles Vital Signs Temperature 97.7 degrees Fahrenheit 04/18/2024 Blood pressure diastolic 66 mm Hg 04/18/2024 Oximetry 97 % 04/18/2024 Height 67 in 04/18/2024 Blood pressure systolic 100 mm Hg 04/18/2024 Weight 220 lbs 04/18/2024 BMI 34.45 kg/m2 04/18/2024 Encounters Encounter Location Date Provider Diagnosis [facility]. [address] [place] [phone] 04/18/2024 Mariam Carreon Pharyngitis J02.9 and Strep pharyngitis J02.0 [facility] [address] [place] [phone] 06/04/2024 Provider Venus Strep pharyngitis J02.0 Assessments Encounter Date Diagnosis (ICD Code) Assessment Notes Treatment Notes Treatment Clinical Notes Section Notes 04/18/2024 Pharyngitis (ICD-10 - J02.9) 04/18/2024 Strep pharyngitis (ICD-10 - J02.0) Meets clinical criteria. Recommended saline oral rinses. Tylenol or ibuprofen for throat discomfort, cepacol lozenges. 06/04/2024 Strep pharyngitis (ICD-10 - J02.0) Plan Of Treatment No Information Insurance Providers Payer Name Payer Address Payer Phone Subscriber Number Group Number Insured Name Patient Relationship to Insured Coverage Start Date Coverage End Date [facility]( [facility]) [facility] [place] [address] [phone] [id number] Dalton Pillai Self - patient is the insured
--- OUTSIDE RECORDS SUMMARY | 2024-09-05 11:07 | XMS_ITS | Clinical Summary ---
Author Organization [facility] Address [address] [place] [address] Care Team Providers Care Restaurant Hostess Name Role Phone Unavailable Primary Care Provider Unavailabl e Social History Tobacco Use Types Packs/Day Years Used Date Smoking Tobacco: Never Assessed Sex and Gender Information Value Date Recorded Sex Assigned at Not on file Legal Sex Male 10:47 PM EST Gender Identity Not on file Sexual Orientation Not on file Plan of Treatment Health Maintenance Due Date Last Done Comments DTaP,Tdap,and Td Vaccines (1 - Tdap) 2013 Hepatitis B Vaccines (1 of 3 - 19+ 3-dose series) 2013 COVID-19 Vaccine (2023-2 5 season) 2023 Influenza Vaccine (Season Ended) 2024 HIB Vaccines Aged Out No longer eligi ble based on patient's age to complete this topic HPV Vaccines Aged Out No longer eligi ble based on patient's age to complete this topic Hepatitis A Vaccines Aged Out No long er eligible based on patient's age to complete this topic IPV Vaccines Aged Out No longer eligi ble based on patient's age to complete this topic MMR Vaccines Aged Out No longer eligi ble based on patient's age to complete this topic Meningococcal ACWY Vaccine Aged Out N o longer eligible based on patient's age to complete this topic Meningococcal B Vaccine Aged Out No l onger eligible based on patient's age to complete this topic Pneumococcal Vaccine: Pediat rics (0 to 5 Years) and At-Risk Patients (6 to 64 Years) Aged Out No longer eligible b ased on patient's age to complete this topic RSV Immunization Patients Un konstantin 20 months Aged Out No longer eligible b ased on patient's age to complete this topic Varicella Vaccines Aged Out No longer eligible based on patient's age to complete this topic
[2024-09-05 11:31] VITALS: BP 98/52; PULSE 75; RESP 16; TEMP 36.3; O2SAT 98
--- NOTE | 2024-09-05 11:32 | PC.NURSE ---
pt a&ox3, vss- pt bp soft but had been resting prior to it being taken, pt denies symptoms of low bp, states his pain is a 1-3/10. he says just laying still it is a 1, when moving it will go up to a 3 . pt awaiting radiology results, call sauceda within reach, plan of care ongoing.
[2024-09-05 12:14] VITALS: BP 98/52; PULSE 75; RESP 16; TEMP 36.3; O2SAT 98
== END 2024-09-05 12:15 | disposition home or self-care (01) ==
PROVIDERS: Emergency Provider Emergency Medicine; PCP Internal Medicine
DX: R10.2 Pelvic and perineal pain (principal); R11.2 Nausea with vomiting, unspecified; R19.7 Diarrhea, unspecified; Z79.899 Other long term (current) drug therapy
CPT/HCPCS: 36415; 74177; 80053; 81003; 83605; 83690; 85025; 96361; 96374; 99284; J2405; Q9967

== ENCOUNTER → 2024-09-05 10:04 | Outpatient (BNV) | payer OTHER, SELFPAY | PROVIDERS: Emergency Provider Emergency Medicine; PCP Internal Medicine; Visit Provider Radiology Diagnostic Radiology | DX: K42.9 Umbilical hernia without obstruction or gangrene (principal) | CPT/HCPCS: 74177 ==

== ENCOUNTER 2024-10-06 13:54 | Emergency (ER) | payer OTHER, SELFPAY ==
[2024-10-06 14:02] VITALS: BP 131/85; PULSE 93; RESP 16; TEMP 36.9; BMI 81.9
--- NOTE | 2024-10-06 14:02 | ED.HA ---
HPI - Headache General Chief Complaint: Headache Stated Complaint: Swollen Face, Back pain, Headache Time Seen by Provider: 10/06/24 15:28 History of Present Illness ED Provider: Anthony WINN Narrative: the patient is a 28-year-old male with a history of cluster headaches. He has had cluster headaches for many years. He sees a [facility] neurologist. He began using a new medicine for the 1st time last month. This medication is Emgality (galcanezumab). This is an injectable medication which is administered once every 28 days. He had his 1st round of this medication about 3 weeks ago. over the last week the patient has had a cluster of unusual symptoms that has been quite bothersome. Symptoms has been going on for about 5 days. He has had a headache that is different in his cluster headaches, he has had pain in his left jaw, he feels that the right eyelid, particularly the upper eyelid, has been swollen, he has also had some pain in joints throughout his body, particularly in his left shoulder. He has also had an itchy rash behind his left shoulder. He has had no fever. His jaw pain is worse when he chews food. He says that he contact his primary care doctor today about these symptoms and he was asked by his primary care doctor to go to an emergency room for evaluation and so he came here. The patient is on thyroid replacement hormone and Wellbutrin. He also has an ADD medication that he uses as needed. He has a history of a left leg DVT about a year and a half ago that he says was after a left knee injury. He describes the DVT has a provoked DVT. He is no longer on anticoagulation. He does not have any symptoms in his legs which remind him of the symptoms he had with a DVT. He has not had any shortness of breath. He has not had any pleuritic chest pain. Related Data Previous Rx's ?Medication ?Instructions ?Recorded apixaban 5 mg (74 tabs) tablets in 5 mg PO BID #74 ea 05/18/23 a dose pack (Eliquis DVT-PE Treat 30D Start) Allergies Allergy/AdvReac Type Severity Reaction Status Date / Time Sulfa (Sulfonamide Allergy Unknown THINS BLOOD Verified 10/06/24 14:03 Antibiotics) (SULFA(SULFONAMIDE ANTIBIOTICS)) morphine Allergy Unknown Hives Uncoded 09/05/24 09:41 Review of Systems Review of Systems: Yes all other systems are reviewed and are negative [facility] Past Medical History Medical History DVT (deep venous thrombosis) Social History Social History Smoked in Last 30 Days: No Use of substances other than those prescribed or required for medical reasons: Yes Substance Use Type: Marijuana Substance Use Type Other:: marijuana gummies Advance Directives: No Advance Directives Information Provided: Yes Do you have a plan to hurt others: No Plan Physical Exam Vital Signs: Vital Signs: Last Vital Signs Temp 98.4 F 10/06/24 16:46 Pulse 81 10/06/24 16:46 Resp 16 10/06/24 16:46 BP 109/73 10/06/24 16:46 Pulse Ox 99 10/06/24 16:46 O2 Del Method Room Air 10/06/24 16:46 BMI result Body Mass Index 81.9 Const: Other: The patient is awake, alert, pleasant, cooperative. Has a normal mental status. He does not appear acutely ill or in distress or uncomfortable. HEENT: Other: There was some mild edema to the eyelid, particularly the right upper eyelid, of the right eye. Otherwise the appearance of the face was unremarkable. There was no additional swelling or asymmetry of any kind. The patient has some tenderness at the left TMJ. However that he has a normal excursion of the jaw. The posterior pharynx is normal. Mucous membranes are moist. Posterior pharynx is normal. Eyes: Other: There is some mild gland swelling to the upper eyelid of the right eye. The eyes are otherwise unremarkable. Pupils are round equal, conjunctivae are clear, extraocular movements intact Neck: Neck: Yes normal visual inspection, Yes full ROM, Yes no lymphadenopathy and Yes supple Resp: Effort & Inspection: normal respiratory effort Auscultation: clear to auscultation bilaterally Cardio: Rate: regular rate Rhythm: regular rhythm Heart sounds: S1 normal heart sound present, S2 normal heart sound present and Murmur heart sound present ( No murmur heard) GI: Other: Abdomen is soft and nontender Skin: Other: there is a patch of mildly dry looking, mildly reddish skin to the left upper back behind the left axilla. Patient reports this is an area of itchiness. Neuro: Other: the patient is awake and alert with normal mental status. Normal cognition. Normal orientation. Cranial nerves are intact. His neck is supple. He moves his extremities normally and appropriately. He seems entirely neurologically intact and nontoxic. Extrem: Other: The patient with had no edema to the extremities. He is moving his extremities well and normally. his legs appear normal. There is no calf swelling or tenderness. No leg edema. No calf asymmetry. Course Course Course Narrative: This is a Rapid Medical Examination (RME) performed by Salina Yost PA-C in triage. Full HPI, ROS, assessment and treatment plan per primary provider in the Main ED. 28 y/o male with history of cluster headaches, history of provoked DVT s/p ACL tear now off of anticoagulation who presents to the ER for evaluation of recurrent headaches for the last 5 days that occur when he goes from sitting to standing or laying to standing. He states this is different than his usual cluster headaches. Pain is in the back of his head, dull, aching pain, 7/10. He reports right eye swelling and pain as well. He also reports left jaw pain and inability to chew. Plan:basic labs Medical Decision Making Medical Decision Making MDM Narrative: The patient is a very pleasant 28-year-old male Who has a history of cluster headaches. He also has a history of a provoked DVT of the left leg after any injury 1 and half years ago. He is not currently on anticoagulation. Three weeks ago he took a 1st dose of a new medication to attempt to manage his cluster headaches. He says that his cluster headaches have done well since starting this medication but over the last week he has had a variety of different symptoms including some right eyelid swelling, a new kind of headache, some diffuse joint pains mostly apparent in the left TMJ and left shoulder, and a patchy of itchy red skin behind the left axilla on his upper back. Clinically the patient looks very well. I do not have any high suspicion for any significantly acutely dangerous process. He has not had any fevers. His vital signs are unremarkable. He has a few mild abnormalities on his physical exam including his right upper eyelid and the skin behind his left axilla but no other objective findings. Laboratory evaluation reveals a normal white count of 8.8 with an unremarkable differential (slight eosinophilia). inflammatory markers of ESR and CRP are mildly elevated at 21 and 3.39. LFTs are mildly abnormal. The patient says this is chronic with him. I have sent serology for Lyme testing. Other than testing for Lyme however I cannot think of any other additional tests that would be appropriate in the emergency room today. The patient looks quite well. I think there is a fairly good chance that the patient's symptoms may be related to the new medication that he started for his cluster headaches. He will therefore be discharged with advice to contact Neurology office to discuss the symptoms and see whether he should receive the next does (he would be due for a dose in about a week ). He should also follow-up with his PCP. He should return if worse. I do not feel that his presentation today represents a recurrence of anything to do with the DVT/ PE. He has no symptoms similar to the symptoms he had with his DVT. He has no chest pain or pleuritic pain or shortness of breath. His vital signs are reassuring as well. Lab Data 10/06/24 14:13 10/06/24 14:13 Labs: Lab Results 10/06/24 Range/Units 14:13 WBC 8.8 (4.8-10.8) X10*3/uL RBC 4.95 (4.60-5.80) X10*6/uL Hgb 14.2 (14.0-18.0) g/dl Hct 41.2 L (42.0-52.0) % MCV 83.2 (80.0-98.0) fL MCH 28.7 (27.0-33.0) pg MCHC 34.5 (31.0-36.0) g/dl RDW 13.0 (11.0-16.0) % Plt Count 367 (160-400) X10*3/uL MPV 8.3 L (9.4-12.4) fL Immature Gran % (Auto) 0.6 H (0.0-0.4) % Neut % (Auto) 56.4 (45-73) % Lymph % (Auto) 23.9 (20-40) % [place] % (Auto) 9.9 (2-11) % Eos % (Auto) 8.2 H (0-4) % Baso % (Auto) 1.0 (0-2) % Lymph # (Auto) 2.1 (1.2-4.9) X10*3/uL [place] # (Auto) 0.9 (0.1-1.2) X10*3/uL Eos # (Auto) 0.7 H (0.0-0.4) X10*3/uL Baso # (Auto) 0.1 (0.0-0.2) X10*3/uL Abs Immat Gran (auto) 0.05 H (0.00-0.03) X10*3/uL Absolute Neuts (auto) 5.0 (2.0-8.3) x10*3/uL Absolute Nucleated RBC 0.000 (0.0-0.012) X10*3/uL Nucleated RBC % (auto) 0.0 (0.0-0.2) /100WBC ESR 21 H (0-15) MM/HR Sodium 139 (135-145) mmol/L Potassium 4.0 (3.3-5.1) mmol/L Chloride 106 (96-108) mmol/L Carbon Dioxide 26 (22-29) mmol/L Anion Gap 11 L (12-20) BUN 12 (9-16) mg/dL Creatinine 0.88 (0.5-1.4) mg/dL Estim Creat Clear Calc 235.6 Estimated GFR > 60 Random Glucose 100 (60-115) mg/dL Calcium 9.5 (8.4-10.2) mg/dL Magnesium 2.0 (1.6-2.6) mg/dL Total Bilirubin 0.3 (0.0-1.0) mg/dL Direct Bilirubin 0.1 (0.0-0.5) mg/dL AST 41 H (5-37) U/L ALT 103 H (0-40) U/L Alkaline Phosphatase 127 H (39-117) U/L C-Reactive Protein 3.39 H (< or = 0.50) mg/dL Total Protein 7.5 (6.5-8.0) g/dL Albumin 4.3 (3.5-5.0) g/dL Urine Color Yellow Urine Appearance Cloudy Urine pH 8.0 (5.0-9.0) Ur Specific [place] 1.015 (1.005-1.025) Urine Protein Negative (Neg-Trace) mg/dL Urine Glucose (UA) Negative (Negative) mg/dL Urine Ketones Negative (Negative) mg/dL Urine Blood Negative (Negative) Urine Nitrite Negative (Negative) Ur Leukocyte Esterase Negative (Negative) Discharge Plan Discharge Clinical Impression: Headache, Swelling of right eyelid, Jaw pain, Left shoulder pain, Pruritic rash Patient Disposition: Home, Self-Care Additional Instructions: My suspicion is that your symptoms are probably related to the medication you started last month. Your blood testing is very reassuring. You have some minor abnormalities to your liver tests which are similar to blood work you had last month. I cannot think of any other acute process that might be likely to cause the constellation of symptoms that you have (with the possible exception of Lyme disease, for which we have sent a blood test). therefore I would recommend that you contact the neurology office and discuss these symptoms before you take your new medication again. Also make an appointment with your regular doctor to discuss these symptoms as well. Return to the emergency room if you feel significantly worse. Prescriptions: No Action Eliquis DVT-PE Treat 30D Start 5 mg (74 tabs) tablets,dose pack 5 mg PO BID Qty: 74 0RF Referrals: Kennedy Hand MD [Primary Care Provider, Internal Medicine] Interventions: ED Discharge Assessment Last Done: 10/06/24 16:46 Discharge Date/Time: 10/06/24 16:47 Print Language: [place]an
[2024-10-06 14:21] LABS: MANUAL DIFF FLAG NO
[2024-10-06 14:23] LABS: Basophils Absolute Auto 0.1 X10*3/uL (0.0-0.2); Eosinophils Absolute Auto 0.7 X10*3/uL (0.0-0.4); Eosinophils Percent Auto 8.2 % (0-4); Hematocrit 41.2 % (42.0-52.0); Hemoglobin 14.2 g/dl (14.0-18.0); Imm Gran Abs Auto 0.05 X10*3/uL (0.00-0.03); Imm Gran Pct Auto 0.6 % (0.0-0.4); Lymphocytes Absolute Auto 2.1 X10*3/uL (1.2-4.9); Lymphocytes Percent Auto 23.9 % (20-40); Mean Corpuscular HGB Conc 34.5 g/dl (31.0-36.0); Mean Corpuscular Hemoglobin 28.7 pg (27.0-33.0); Mean Corpuscular Volume 83.2 fL (80.0-98.0); Mean Platelet Volume 8.3 fL (9.4-12.4); Monocytes Absolute Auto 0.9 X10*3/uL (0.1-1.2); Monocytes Percent Auto 9.9 % (2-11); Neutrophils Percent Auto 56.4 % (45-73); Platelet Count 367 X10*3/uL (160-400); Red Blood Count 4.95 X10*6/uL (4.60-5.80); White Blood Count 8.8 X10*3/uL (4.8-10.8)
[2024-10-06 14:30] LABS: Appearance Urine Cloudy; Color Urine Yellow; Glucose Urine UA Negative (Negative); Leukocyte Esterase Urine Negative (Negative); Nitrite Urine Negative (Negative); Specific Gravity - Urine 1.015 (1.005-1.025); Urine Blood Negative (Negative); Urine Ketones Negative (Negative); Urine Protein Negative (Neg-Trace)
[2024-10-06 14:43] LABS: Alanine Aminotransferase 103 U/L (0-40); Albumin Level 4.3 g/dL (3.5-5.0); Alkaline Phosphatase 127 U/L (39-117); Anion Gap 11 (12-20); Aspartate Amino Transferase 41 U/L (5-37); Bilirubin Direct 0.1 mg/dL (0.0-0.5); Bilirubin Total 0.3 mg/dL (0.0-1.0); Blood Urea Nitrogen 12 mg/dL (9-16); Calcium 9.5 mg/dL (8.4-10.2); Carbon Dioxide 26 mmol/L (22-29); Chloride 106 mmol/L (96-108); Creatinine Clr Calc Pharmacy 235.6; Estimated Glomerular Filt Rate > 60; Glucose Random 100 mg/dL (60-115); Sodium 139 mmol/L (135-145); Total Protein 7.5 g/dL (6.5-8.0)
--- OUTSIDE RECORDS SUMMARY | 2024-10-06 15:20 | XMS_ITS | Patient Health Record ---
Author Organization [facility] [employer]. Address [address] [place] [address] [phone] Care Team Providers Care Platform Engineer Name Role Phone other PCP, not listed Primary Care Provider Unav ailable Mariam Carreon Unavailable [phone] [employer], Provider Unavailable Unavailable Allergies Allergen (clinical [...] Location Date Provider Diagnosis [facility]. [address] [place] [address] [phone] 04/18/2024 Mariam Carreon Pharyngitis J02.9 and Strep pharyngitis J02.0 [facility] [address] [place] [address] [phone] 06/04/2024 Provider Venus Strep pharyngitis J02.0 Assessments [...] Insured Coverage Start Date Coverage End Date [facility]( [facility]) [facility] [place] [phone] [id number] Dalton Pillai Self - patient is the insured
[2024-10-06 15:25] VITALS: BP 109/73; PULSE 81; RESP 16; TEMP 36.9; O2SAT 99
[2024-10-06 16:04] LABS: C Reactive Protein 3.39 mg/dL (< or = 0.50)
--- NOTE | 2024-10-06 16:10 | PC.NURSE ---
patient a&ox3, vss, pt noted rash to left upper flank/shoulder area, pt had mild left eye swelling. pt stating he has a mild headache, provider spoke with patient, will draw lyme titers and patient is going to discharge home and follow up with neurology
[2024-10-06 16:41] LABS: Erythrocyte Sedimentation Rate 21 MM/HR (0-15)
[2024-10-06 16:46] VITALS: BP 109/73; PULSE 81; RESP 16; TEMP 36.9; O2SAT 99
[2024-10-10 02:54] LABS: Lyme Blot 5.62 index
[2024-10-10 11:53] LABS: Lyme Abs Screen POSITIVE
[2024-10-10 22:29] LABS: 18 KD (IgG) Band NON-REACTIVE; 23 KD (IgG) Band REACTIVE; 23 KD (IgM) Band REACTIVE; 28 KD (IgG) Band NON-REACTIVE; 30 KD (IgG) Band NON-REACTIVE; 39 KD (IgM) Band REACTIVE; 39KD (IgG) Band NON-REACTIVE; 41 KD (IgM) Band REACTIVE; 41KD (IgG) Band REACTIVE; 45 KD (IgG) Band NON-REACTIVE; 58 KD (IgG) Band NON-REACTIVE; 66 KD (IgG) Band NON-REACTIVE; 93 KD (IgG) Band NON-REACTIVE; Lyme IgG Blot Interp NEGATIVE (NEGATIVE); Lyme IgM Blot Interp POSITIVE (NEGATIVE)
== END 2024-10-06 16:47 | disposition home or self-care (01) ==
PROVIDERS: Physician Assistant; Emergency Provider Emergency Medicine; PCP Internal Medicine
DX: R51.9 Headache, unspecified (principal); M54.2 Cervicalgia; H02.841 Edema of right upper eyelid; R21 Rash and other nonspecific skin eruption; M25.512 Pain in left shoulder; R68.84 Jaw pain; Z86.718 Personal history of other venous thrombosis and embolism; Z79.899 Other long term (current) drug therapy
CPT/HCPCS: 36415; 80048; 80076; 81003; 83735; 85025; 85652; 86140; 86617; 86618; 99283; 99284